=== PATIENT | female | born 2000 | race Caucasian/White ===

== ENCOUNTER 2021-10-20 19:52 | Emergency (ER) | payer MEDICAID, OTHER ==
--- NOTE | 2021-10-20 19:56 | ERPHSYRPT ---
- History of Present Illness Time Seen by Provider: 10/20/21 19:56 Source: patient Physician History: This is a 21-year-old white female patient of Dr. Rosas who is approximate 12- 1/2 weeks based on an ultrasound that was performed on 09/18/2021 which shows a single viable intrauterine at approximately 8 weeks and 1 day. There is a tiny sliver of subchorionic hemorrhage at that time. Patient was engaged in sexual intercourse late last night and this morning there was a small amount of vaginal bleeding. This is the patient's first . She felt that this was abnormal and immediately came to the emergency department. She has no pain. There is been no cramping. She has no genitourinary symptoms other than the vaginal bleeding that has since stopped. Timing/Duration: today Activites at Onset: sexual activity Quality: other (No pain) Onset Location: other (No pain) Severity of Pain-Max: none Severity of Pain-Current: none Prior abdominal problems: none Modifying Factors: Improves With: nothing Associated Symptoms: vaginal discharge (Bleeding. Stopped prior to arrival to the emergency department), No abdominal pain, No diaphoresis, No vomiting, No dysuria, No polyuria, No lower back pain Allergies/Adverse Reactions: No Known Drug Allergies Allergy (Verified 10/20/21 20:00) Home Medications: Vit No.130/Iron/Folic [ Vitamins] 1 each PO 10/20/21 [History] Hx Tetanus, Diphtheria Vaccination/Date Given: Yes Hx Influenza Vaccination/Date Given: No Hx Pneumococcal Vaccination/Date Given: No Travel Risk - International Travel Have you traveled outside of the country in past 3 weeks: No - Coronavirus Screening Are you exhibiting any of the following symptoms?: No Close contact with a COVID-19 positive Pt in past 14-21 Days: No - Review of Systems Constitutional: No Symptoms Eyes: Photophobia Ears, Nose, & Throat: No Symptoms Respiratory: No Symptoms Cardiac: No Symptoms Abdominal/Gastrointestinal: No Symptoms Genitourinary Symptoms: Vaginal Bleeding (Stopped prior to arrival to the emergency department) Musculoskeletal: No Symptoms Skin: No Symptoms Neurological: No Symptoms Psychological: No Symptoms Endocrine: No Symptoms Hematologic/Lymphatic: No Symptoms Immunological/Allergic: No Symptoms All Other Systems: Reviewed and Negative - Past Medical History Pertinent Past Medical History: No Neurological History: No Pertinent History ENT History: No Pertinent History Cardiac History: No Pertinent History Respiratory History: No Pertinent History Endocrine Medical History: No Pertinent History Musculoskeletal History: No Pertinent History GI Medical History: No Pertinent History History: No Pertinent History Psycho-Social History: No Pertinent History Female Reproductive Disorders: No Pertinent History - Past Surgical History Past Surgical History: No - Social History Smoking Status: Never smoker Exposure to second hand smoke: No Drug Use: none Patient Lives Alone: No - Nursing Vital Signs Nursing Vital Signs: Initial Vital Signs Temperature 98.4 F 10/20/21 20:01 Pulse Rate 105 H 10/20/21 20:01 Respiratory Rate 18 10/20/21 20:01 Blood Pressure 113/80 10/20/21 20:01 O2 Sat by Pulse Oximetry 98 10/20/21 20:01 Pain Scale Pain Intensity 0 - Physical Exam General Appearance: no apparent distress, alert, anxiety Eye Exam: PERRL/EOMI, eyes nml inspection Ears, Nose, Throat Exam: normal ENT inspection, moist mucous membranes Neck Exam: normal inspection, non-tender, supple, full range of motion Respiratory Exam: normal breath sounds, lungs clear, airway intact, No chest tenderness, No respiratory distress Cardiovascular Exam: regular rate/rhythm, normal heart sounds, normal peripheral pulses Gastrointestinal/Abdomen Exam: soft, normal bowel sounds, No tenderness Pelvic Exam: not done Rectal Exam: not done Back Exam: normal inspection, normal range of motion, No CVA tenderness, No vertebral tenderness Extremity Exam: normal inspection, normal range of motion, pelvis stable Neurologic Exam: alert, oriented x 3, cooperative, tool pusher II-XII nml as tested, normal mood/affect, nml cerebellar function, nml station & gait, sensation nml Skin Exam: normal color, warm, dry Lymphatic Exam: No adenopathy SpO2 Interpretation: normal O2 Delivery: Room Air - Course Nursing assessment & vital signs reviewed: Yes Ordered Tests: Active Orders 24 hr Category Date Time Status CBC W DIFF Stat Lab 10/20/21 20:23 Completed CMP Stat Lab 10/20/21 20:23 Completed CULTURE,URINE Stat Lab 10/20/21 20:23 Received HCG, Quantitative (Inhouse) Stat Lab 10/20/21 20:23 Received Medication Summary Discontinued Medications Generic Name Dose Route Start Last Admin Trade Name Freq PRN Reason Stop Dose Admin Cephalexin HCl 500 mg 10/20/21 21:17 10/20/21 21:22 Cephalexin Mh500 Mg Capsule PO 10/20/21 21:18 500 mg STAT ONE Administration Cephalexin HCl Confirm 10/20/21 21:21 Cephalexin Mh500 Mg Capsule Administered 10/20/21 21:22 Dose 500 mg .ROUTE .STK-MED ONE Lab/Rad Data: Laboratory Result Diagrams 10/20/21 20:23 10/20/21 20:23 Laboratory Results 10/20/21 10/20/21 10/20/21 Range/Units 20:23 20:23 20:23 WBC 3.7 L (4.0-10.5) K/mm3 RBC 4.07 L (4.1-5.4) M/mm3 Hgb 12.8 (12.0-16.0) gm/dl Hct 37.6 (35-47) % MCV 92.4 (78-100) fl MCH 31.4 (26-32) pg MCHC 34.0 (32-36) g/dl RDW 13.2 (11.5-14.0) % Plt Count 259 (150-450) K/mm3 MPV 9.0 (7.5-11.0) fl Gran % 52.0 (36.0-66.0) % Eos # (Auto) 0.02 (0-0.5) Absolute Lymphs (auto) 1.28 (1.0-4.6) Absolute Monos (auto) 0.44 (0.0-1.3) Lymphocytes % 35.1 (24.0-44.0) % Monocytes % 12.1 H (0.0-12.0) % Eosinophils % 0.5 (0.00-5.0) % Basophils % 0.3 (0.0-0.4) % Absolute Granulocytes 1.90 (1.4-6.9) Basophils # 0.01 (0-0.4) Sodium 135 L (137-145) mmol/L Potassium 3.6 (3.5-5.1) mmol/L Chloride 107 (98-107) mmol/L Carbon Dioxide 19 L (22-30) mmol/L Anion Gap 12.6 (5-15) MEQ/L BUN 9 (7-17) mg/dL Creatinine 0.72 (0.52-1.04) mg/dL Estimated GFR > 60.0 ML/MIN Glucose 88 (74-106) mg/dL Calcium 9.3 (8.4-10.2) mg/dL Total Bilirubin 0.30 (0.2-1.3) mg/dL AST 23 (14-36) U/L ALT 15 (0-35) U/L Alkaline Phosphatase 46 (38-126) U/L Serum Total Protein 6.8 (6.3-8.2) g/dL Albumin 3.8 (3.5-5.0) g/dL Urinalys Dipstick Clnc MAIN LAB Urine Color YELLOW (YELLOW) Urine Appearance CLEAR (CLEAR) Urine pH 6.5 (5-6) Ur Specific [place] 1.025 (1.005-1.025) POC Urine Protein Conf NEGATIVE (Negative) Urine Ketones NEGATIVE (NEGATIVE) Urine Nitrite NEGATIVE (NEGATIVE) Urine Bilirubin NEGATIVE (NEGATIVE) Urine Urobilinogen 0.2 (0-1) mg/dL Urine Leukocytes TRACE (NEGATIVE) Urine WBC (Auto) 11-15 (0-5) /HPF Urine RBC (Auto) 26-50 (0-2) /HPF U Epithel Cells (Auto) RARE (FEW) /HPF Urine Bacteria (Auto) RARE (NEGATIVE) /HPF Urine RBC MODERATE (0-5) Shaggy/ul Urine Mucus (Auto) SLIGHT (NEGATIVE) /HPF Ur Culture Indicated? YES Urine Glucose NEGATIVE (NEGATIVE) mg/dL - Progress Progress: re-examined Progress Note: 10/20/21 20:42 heart tones at 176 bpm Blood Culture(s) Obtained: No Antibiotics given: No Counseled pt/family regarding: lab results, diagnosis, need for follow-up - Departure Departure Disposition: Home Clinical Impression: Vaginal bleeding in patient after first trimester, UTI in Condition: Stable Critical Care Time: No Referrals: GEE ROSAS MD [Primary Care Provider] - Follow up/PCP as directed Instructions: Urinary Tract Infections in , Bleeding In Early Additional Instructions: Drink plenty of fluids. Rest. Avoid sexual intercourse for 1 week. Keep your appointment with Dr. Rosas that is scheduled in approximately 1 week. Prescriptions: Cephalexin Mh 500 mg [Keflex 500 mg] 500 mg PO TID #15 cap
[2021-10-20 20:26] LABS: Basophil (Absolute #) 0.01 (0-0.4); Eosinophil % 0.5 % (0.00-5.0); Eosinophil (Absolute #) 0.02 (0-0.5); Hematocrit 37.6 % (35-47); Hemoglobin 12.8 gm/dl (12.0-16.0); Lymphocyte (Absolute #) 1.28 (1.0-4.6); Lymphocytes % 35.1 % (24.0-44.0); Mean Cell Volume 92.4 fl (78-100); Mean Corpuscular Hemoglobin 31.4 pg (26-32); Monocyte (Absolute #) 0.44 (0.0-1.3); Monocytes % 12.1 % (0.0-12.0); Platelet Count 259 K/mm3 (150-450); Red Blood Count 4.07 M/mm3 (4.1-5.4); Red Cell Distribution Width 13.2 % (11.5-14.0); White Blood Count 3.7 K/mm3 (4.0-10.5)
[2021-10-20 20:37] LABS: Bacteria RARE /HPF (NEGATIVE); Epithelial Cells RARE /HPF (FEW); Mucus SLIGHT /HPF (NEGATIVE); RBC 26-50 /HPF (0-2)
[2021-10-20 20:38] LABS: Appearance CLEAR (CLEAR); Bilirubin NEGATIVE (NEGATIVE); Dipstick done @ ? MAIN LAB; Glucose NEGATIVE (NEGATIVE); Ketones NEGATIVE (NEGATIVE); Nitrite NEGATIVE (NEGATIVE); Ph 6.5 (5-6); Protein,Urine Dip NEGATIVE (Negative); RBC MODERATE Ery/ul (0-5); Specific Gravity 1.025 (1.005-1.025); Urobilinogen 0.2 mg/dL (0-1)
[2021-10-20 20:40] LABS: ALBUMIN 3.8 g/dL (3.5-5.0); ALKALINE PHOSPHATASE 46 U/L (38-126); ANION GAP 12.6 MEQ/L (5-15); BLOOD UREA NITROGEN 9 mg/dL (7-17); CHLORIDE 107 mmol/L (98-107); Calcium 9.3 mg/dL (8.4-10.2); Carbon Dioxide 19 mmol/L (22-30); Creatinine 1 0.72 mg/dL (0.52-1.04); EST GLOMERULAR FILTRATION RATE > 60.0 ML/MIN; Glucose 88 mg/dL (74-106); Potassium 3.6 mmol/L (3.5-5.1); SGOT/AST 23 U/L (14-36); SGPT/ALT 15 U/L (0-35); SODIUM 135 mmol/L (137-145); Total Protein 6.8 g/dL (6.3-8.2)
[2021-10-20] MEDS ORDERED: KEFLEX 500 MG PO ONE (21:17)
[2021-10-20] MEDS ORDERED: KEFLEX 500 MG ONE (21:21)
[2021-10-20 21:44] VITALS: BP 105/66; PULSE 89; O2SAT 99
== END 2021-10-20 21:46 | disposition home or self-care (01) ==
LOC: ED 19:52
DX: O23.41 Unspecified infection of urinary tract in pregnancy, first trimester (principal); N39.0 Urinary tract infection, site not specified; Z3A.12 12 weeks gestation of pregnancy; O20.9 Hemorrhage in early pregnancy, unspecified
CPT/HCPCS: 36415; 80053; 81015; 84702; 85025; 87086; 99283; A9270-GY

== ENCOUNTER 2022-01-30 00:23 | Observation (INO) | payer OTHER ==
[2022-01-30 00:57] VITALS: BP 115/69; PULSE 85; O2SAT 97
[2022-01-30 01:47] LABS: Appearance SLIGHTLY CLOUDY (CLEAR); Bilirubin NEGATIVE (NEGATIVE); Dipstick done @ ? MAIN LAB; Glucose NEGATIVE (NEGATIVE); Ketones NEGATIVE (NEGATIVE); Nitrite NEGATIVE (NEGATIVE); Protein,Urine Dip NEGATIVE (Negative); RBC NEGATIVE Ery/ul (0-5); Specific Gravity 1.015 (1.005-1.025); Urobilinogen 0.2 mg/dL (0-1)
[2022-01-30 02:02] LABS: Bacteria PACKED /HPF (NEGATIVE); Epithelial Cells FEW /HPF (FEW); Mucus SLIGHT /HPF (NEGATIVE)
[2022-01-30 02:03] LABS: Amphetamine,Urine NEGATIVE (NEGATIVE); Barbiturate,Urine NEGATIVE (NEGATIVE); Benzodiazepine,Urine NEGATIVE (NEGATIVE); Cocaine,Urine NEGATIVE (NEGATIVE); Methadone,Urine NEGATIVE (NEGATIVE); Opiate,Urine NEGATIVE (NEGATIVE); PCP,Urine NEGATIVE (NEGATIVE); THC,Urine NEGATIVE (NEGATIVE); Urine Cultured Indicated? YES
== END 2022-01-30 02:50 | disposition home or self-care (01) ==
LOC: ICU 00:23
PROVIDERS: ADMIT Family Medicine; ATTEND Family Medicine
DX: Z34.02 Encounter for supervision of normal first pregnancy, second trimester (principal); Z3A.27 27 weeks gestation of pregnancy
CPT/HCPCS: 80307; 81015; 87086; G0378

== ENCOUNTER 2022-05-04 01:00 | Inpatient (IN) | payer OTHER ==
[2022-05-04] MEDS ORDERED: BRETHINE 1 MG/ML SQ PRN (17:00)
[2022-05-04] MEDS ORDERED: Cervidil 10 MG VAG SCH (18:00)
[2022-05-04] MEDS ORDERED: Zofran 4 MG/2 ML VIAL IV PRN (20:12)
[2022-05-04 20:27] LABS: Absolute Neutrophil Ct (ANC) 6.16 x10^3/uL (1.4-6.9); Basophil (Absolute #) 0.02 x10^3/uL (0-0.4); Eosinophil % 0.2 % (0.00-5.0); Eosinophil (Absolute #) 0.02 x10^3/uL (0-0.5); Hemoglobin 11.5 g/dL (12.0-16.0); Lymphocyte (Absolute #) 1.66 x10^3/uL (1.0-4.6); Lymphocytes % 19.6 % (24.0-44.0); Mean Cell Volume 93.8 fL (78-100); Mean Corpuscular Hemoglobin 30.8 pg (26-32); Mean Corpuscular Hgb Concent. 32.9 g/dL (32-36); Monocytes % 7.1 % (0.0-12.0); Neutrophil % 72.7 % (36.0-66.0); Platelet Count 222 x10^3/uL (150-450); Red Blood Count 3.73 x10^6/uL (4.1-5.4); Red Cell Distribution Width 13.8 % (11.5-14.0); White Blood Count 8.5 x10^3/uL (4.0-10.5)
[2022-05-04 20:44] LABS: Amphetamine,Urine NEGATIVE (NEGATIVE); Barbiturate,Urine NEGATIVE (NEGATIVE); Benzodiazepine,Urine NEGATIVE (NEGATIVE); Cocaine,Urine NEGATIVE (NEGATIVE); Methadone,Urine NEGATIVE (NEGATIVE); Opiate,Urine NEGATIVE (NEGATIVE); PCP,Urine NEGATIVE (NEGATIVE); THC,Urine NEGATIVE (NEGATIVE)
[2022-05-04] MEDS: TYLENOL EXTRA STRENGTH 500 MG PO PRN ×2 (23:21→23:58)
[2022-05-04] MEDS ORDERED: STADOL 2 MG IV ONE (23:37)
[2022-05-04] MEDS: Lactated Ringers 1,000 ML IV SCH (23:42)
[2022-05-05] MEDS: Lactated Ringers 1,000 ML IV SCH (03:40)
[2022-05-05] MEDS ORDERED: PITOCIN 30 UNITS/ LR 500 ML 30 UNITS/500 ML PLAST..BAG IV SCH ×2 (06:00→20:30)
[2022-05-05] MEDS ORDERED: Dermoplast Spray TP PRN (08:23)
[2022-05-05] MEDS ORDERED: LANSINOH 40 GM TOP PRN (08:23)
[2022-05-05] MEDS ORDERED: Dulcolax 10 MG SUPP PR PRN (08:23)
[2022-05-05] MEDS ORDERED: FENTANYL 2 MCG-BUPIV 0.125%-NS 250 ML Epidur 250 ML EPIDURAL SCH (09:00)
[2022-05-05] MEDS ORDERED: Ephedrine Sulfate 50 MG/ML IV PRN (09:00)
[2022-05-05] MEDS ORDERED: Lactated Ringers 1,000 ML IV ONE (09:00)
[2022-05-05] MEDS: Docusate Sodium 100 MG PO SCH ×2 (09:47→22:23)
[2022-05-05] MEDS: MOTRIN 400 MG PO PRN ×3 (09:52→22:23)
[2022-05-05] MEDS: CYTOTEC PO SCH (09:56)
[2022-05-05] MEDS: TUCKS TP PRN (10:18)
[2022-05-05] MEDS: TYLENOL EXTRA STRENGTH 500 MG PO PRN (19:01)
[2022-05-06 04:53] LABS: Absolute Neutrophil Ct (ANC) 7.79 x10^3/uL (1.4-6.9); Basophil (Absolute #) 0.05 x10^3/uL (0-0.4); Eosinophil (Absolute #) 0.13 x10^3/uL (0-0.5); Hematocrit 32.4 % (35-47); Hemoglobin 10.4 g/dL (12.0-16.0); Lymphocyte (Absolute #) 3.57 x10^3/uL (1.0-4.6); Lymphocytes % 28.3 % (24.0-44.0); Mean Corpuscular Hemoglobin 31.1 pg (26-32); Mean Corpuscular Hgb Concent. 32.1 g/dL (32-36); Mean Platelet Volume 9.4 fL (7.5-11.0); Monocytes % 7.9 % (0.0-12.0); Neutrophil % 61.8 % (36.0-66.0); Platelet Count 200 x10^3/uL (150-450); Red Blood Count 3.34 x10^6/uL (4.1-5.4); Red Cell Distribution Width 14.2 % (11.5-14.0); White Blood Count 12.6 x10^3/uL (4.0-10.5)
[2022-05-06] MEDS: MOTRIN 400 MG PO PRN ×3 (07:11→21:29)
[2022-05-06 07:19] LABS: HBsAg Screen Negative (Negative)
[2022-05-06] MEDS: Docusate Sodium 100 MG PO SCH ×2 (09:51→22:00)
[2022-05-06] MEDS: FERREX 150 PO SCH (09:52)
[2022-05-06] MEDS ORDERED: Adacel Vial IM ONE (10:00)
[2022-05-06] MEDS: TYLENOL EXTRA STRENGTH 500 MG PO PRN (12:28)
[2022-05-07] MEDS: TYLENOL EXTRA STRENGTH 500 MG PO PRN (07:55)
--- NOTE | 2022-05-07 09:09 | PCM.DS ---
Discharge Summary Date of Admission: 05/05/22 01:00 Admitting Physician: GEE ROSAS Consults: Consults on Case 05/05/22 09:00 Notify Anesthesia Provider PRN 05/05/22 10:40 Navigation ONCE Primary Care Provider: GEE ROSAS Allergies Allergies No Known Drug Allergies Allergy (Verified 05/04/22 22:31) Hospital Summary - Hospital Course Hospital Course: patient had uncomplicated at 40+ wks EGA. no repair, mild lochia and tolerating po postop. she is successfully at this time. well bonded with her infant Raissa - Vitals & Intake/Output Vital Signs: Vital Signs Temperature 98.9 F 05/07/22 08:00 Pulse Rate 86 05/07/22 08:00 Respiratory Rate 18 05/07/22 08:00 Blood Pressure 110/62 05/07/22 08:00 O2 Sat by Pulse Oximetry 98 05/07/22 08:00 Intake & Output: Intake & Output 05/04/22 05/05/22 05/06/22 05/07/22 11:59 11:59 11:59 11:59 Intake Total 520 400 650 Output Total 175 Balance 345 400 650 Weight 180 kg 82.024 kg - Lab Result Diagrams: 05/06/22 04:48 - Procedures and Test Procedures and Tests throughout Hospitalization: Therapy Orders & Screens 05/05/22 05:15 Standby STAT Comment: Diagnosis: Induction of labor Discharge Exam General Appearance: no apparent distress Neurologic Exam: alert, oriented x 3 Respiratory Exam: normal breath sounds, lungs clear, No respiratory distress Cardiovascular Exam: regular rate/rhythm, normal heart sounds Gastrointestinal/Abdomen Exam: soft, other (fundus firm) Extremity Exam: normal inspection, normal range of motion Skin Exam: normal color, warm, dry Final Diagnosis/Problem List - Final Discharge Diagnosis/Problem (1) Vaginal delivery Current Visit: Yes Status: Acute Code(s): O80 - ENCOUNTER FOR FULL-TERM UNCOMPLICATED DELIVERY (2) () Current Visit: Yes Status: Acute Code(s): Z78.9 - OTHER SPECIFIED HEALTH STATUS - Discharge Disposition: Home, Self-Care Condition: Stable Prescriptions: Continue Vit No.130/Iron/Folic [ Tablet] 1 each PO DAILY Follow up with: GEE ROSAS MD [Primary Care Provider] - 6 weeks
[2022-05-07] MEDS: TUCKS TP PRN (10:01)
[2022-05-07] MEDS: FERREX 150 PO SCH (10:02)
[2022-05-07] MEDS: Docusate Sodium 100 MG PO SCH (10:02)
[2022-05-07 15:50] VITALS: BP 133/75; PULSE 88; O2SAT 99
== END 2022-05-07 16:15 | disposition home or self-care (01) | DRG 807 ==
LOC: OB 01:00 → OBSVTOIN 05-05 01:00
PROVIDERS: ADMIT Family Medicine; ATTEND Family Medicine
PROC: 10E0XZZ Delivery of Products of Conception, External Approach (ICD-10-PCS; principal; 2022-05-05)
DX: O69.81X0 Labor and delivery complicated by cord around neck, without compression, not applicable or unspecified (principal); Z37.0 Single live birth; Z3A.40 40 weeks gestation of pregnancy; Z20.828 Contact with and (suspected) exposure to other viral communicable diseases
CPT/HCPCS: 36415; 80307; 85025; 87340; 90471; 90715; 94799; G0378; J0595; J2590; A9270-GY

== ENCOUNTER 2023-06-08 23:38 | Emergency (ER) | payer OTHER ==
[2023-06-08 23:53] VITALS: TEMP 98.5
--- NOTE | 2023-06-08 23:58 | ERPHSYRPT ---
- History of Present Illness Time Seen by Provider: 06/08/23 23:46 Source: patient Exam Limitations: no limitations Physician History: Pt states she has had a non-productive cough for the past 7 days, fever up to 102.8 degrees for the past 2 days, vomiting 4x in the past 3 days without blood and earaches today. Last BM was today & wnl. Pt also states she has had chills & generalized aches for the past 2 days. Allergies/Adverse Reactions: No Known Drug Allergies Allergy (Verified 06/08/23 23:48) Hx Tetanus, Diphtheria Vaccination/Date Given: Yes Hx Influenza Vaccination/Date Given: No Hx Pneumococcal Vaccination/Date Given: No Travel Risk - Vaccine Status Have you recieved a Covid-19 vaccination: No - Review of Systems Constitutional: Fever, Chills Ears, Nose, & Throat: Ear Pain Respiratory: Cough Abdominal/Gastrointestinal: Vomiting Musculoskeletal: Arthralgias Neurological: Headache (Pt states she has migraines.) - Past Medical History Pertinent Past Medical History: No Neurological History: No Pertinent History ENT History: No Pertinent History Cardiac History: No Pertinent History Respiratory History: No Pertinent History Endocrine Medical History: No Pertinent History Musculoskeletal History: No Pertinent History GI Medical History: No Pertinent History History: No Pertinent History Psycho-Social History: No Pertinent History Female Reproductive Disorders: No Pertinent History - Past Surgical History Past Surgical History: No - Social History Smoking Status: Never smoker Exposure to second hand smoke: No Drug Use: none Patient Lives Alone: No - Nursing Vital Signs Nursing Vital Signs: Initial Vital Signs Pulse Rate 105 H 06/08/23 23:49 Respiratory Rate 18 06/08/23 23:49 Blood Pressure 130/81 06/08/23 23:49 O2 Sat by Pulse Oximetry 97 06/08/23 23:49 Pain Scale Pain Intensity 8 - Physical Exam General Appearance: alert Eye Exam: PERRL/EOMI ENT Exam: TMs normal, pharyngeal erythema (mild) Neck Exam: normal inspection Respiratory Exam: normal breath sounds Cardiovascular/Chest Exam: normal heart sounds Gastrointestinal/Abdominal Exam: soft, normal bowel sounds Extremity Exam: no pedal edema Neurologic Exam: alert, cooperative Skin Exam: warm, dry SpO2 Interpretation: normal SpO2: 97 O2 Delivery: Room Air - Radiology Exams Chest X-ray Interpretation: Interpreted by me, No Pneumonia Ordered Tests: Active Orders 24 hr Category Date Time Status CHEST 2 VIEWS (PA AND LAT) Stat Exams 06/08/23 23:53 Taken CULTURE,URINE Stat Lab 06/08/23 23:59 Received HCG QUALITATIVE, URINE Stat Lab 06/09/23 Completed MONO SCREEN Stat Lab 06/08/23 00:05 Completed UA W/RFX UR CULTURE Stat Lab 06/08/23 23:59 Completed Lab/Rad Data: Laboratory Results 06/09/23 06/08/23 06/08/23 Range/Units Unknown 23:59 00:05 Urine Color Yellow (Yellow) Urine Appearance Cloudy A (Clear) Urine pH 6.5 (4.6-8.0) Ur Specific [place] 1.015 (1.005-1.030) Urine Protein 30 (Negative) Urine Glucose (UA) Negative (Negative) mg/dL Urine Ketones 15 A (Negative) Urine Blood Moderate A (Negative) Urine Nitrite Positive A (Negative) Urine Bilirubin Negative (Negative) Urine Urobilinogen 1.0 A (0.2) mg/dL Ur Leukocyte Esterase Large A (Negative) U Hyaline Cast (Auto) NONE SEEN (0-2) /LPF Urine Microscopic RBC 6-10 A (0-5) /HPF Urine Microscopic WBC >100 A (0-5) /HPF Ur Epithelial Cells None Seen (None Seen) /HPF Urine Bacteria Rare A (None Seen) /HPF Urine Culture Reflexed YES (NO) Urine HCG, Qual NEGATIVE (NEGATIVE) Monoscreen (NEGATIVE) Influenza Type A Ag NEGATIVE (NEGATIVE) Influenza Type B Ag NEGATIVE (NEGATIVE) RSV (PCR) NEGATIVE (NEGATIVE) SARS-CoV-2 (PCR) NEGATIVE (NEGATIVE) Group A Strep Antibody (NEGATIVE) 06/08/23 06/08/23 Range/Units 00:05 00:05 Urine Color (Yellow) Urine Appearance (Clear) Urine pH (4.6-8.0) Ur Specific [place] (1.005-1.030) Urine Protein (Negative) Urine Glucose (UA) (Negative) mg/dL Urine Ketones (Negative) Urine Blood (Negative) Urine Nitrite (Negative) Urine Bilirubin (Negative) Urine Urobilinogen (0.2) mg/dL Ur Leukocyte Esterase (Negative) U Hyaline Cast (Auto) (0-2) /LPF Urine Microscopic RBC (0-5) /HPF Urine Microscopic WBC (0-5) /HPF Ur Epithelial Cells (None Seen) /HPF Urine Bacteria (None Seen) /HPF Urine Culture Reflexed (NO) Urine HCG, Qual (NEGATIVE) Monoscreen NEGATIVE (NEGATIVE) Influenza Type A Ag (NEGATIVE) Influenza Type B Ag (NEGATIVE) RSV (PCR) (NEGATIVE) SARS-CoV-2 (PCR) (NEGATIVE) Group A Strep Antibody NOT DETECTED (NEGATIVE) - Progress Progress: unchanged Counseled pt/family regarding: lab results, diagnosis, rad results Medical Desision Making - Diagnostic Testing Diagnostic test were ordered, analyzed, and reviewed by me: Yes - Departure Departure Disposition: Home Clinical Impression: UTI (urinary tract infection) Condition: Stable Critical Care Time: No Referrals: GEE ROSAS MD [Primary Care Provider] - Follow up/PCP as directed Instructions: Urinary Tract Infection, Adult (DC), Fever, Adult (DC) Additional Instructions: Follow up with private doctor tomorrow. Prescriptions: Nitrofurantoin Macro 100 mg [Macrobid 100MG Capsule] 100 mg PO BID #14 cap
[2023-06-09 00:16] LABS: Appearance Cloudy (Clear); Bacteria Rare /HPF (None Seen); Bilirubin Negative (Negative); Blood Moderate (Negative); Epithelial Cells None Seen /HPF (None Seen); Glucose, Urine Negative (Negative); Hyaline Casts NONE SEEN /LPF (0-2); Ketones 15 (Negative); Leukocyte Esterase Large (Negative); Nitrite Positive (Negative); Ph 6.5 (4.6-8.0); Protein,Urine Dip 30 (Negative); Specific Gravity 1.015 (1.005-1.030); WBC >100 /HPF (0-5)
[2023-06-09 00:17] LABS: ADD URINE CULTURE? YES (NO)
[2023-06-09 00:25] LABS: HCG URINE TEST NEGATIVE (NEGATIVE)
[2023-06-09 00:54] LABS: INFLUENZA A NEGATIVE (NEGATIVE); INFLUENZA B NEGATIVE (NEGATIVE); RESPIRATORY SYNCTIAL VIRUS NEGATIVE (NEGATIVE); SARS-CoV-2 Xpert Express NEGATIVE (NEGATIVE)
[2023-06-09 01:05] VITALS: BP 120/80; PULSE 117; RESP 18
[2023-06-09] MEDS ORDERED: Rocephin 1000 MG INJ IM ONE (01:06)
[2023-06-09 01:08] VITALS: O2SAT 97
[2023-06-09] MEDS ORDERED: Rocephin 1000 MG INJ ONE (01:12)
[2023-06-09] MEDS ORDERED: XYLOCAINE 1% HCL 20 ML MDV ONE (01:12)
--- NOTE | 2023-06-09 08:58 | XRAY ---
Indication: Fever. Comparison: None PA/lateral chest demonstrates normal heart, lungs, and bony thorax.
== END 2023-06-09 01:26 | disposition home or self-care (01) ==
LOC: ED 23:38
DX: N39.0 Urinary tract infection, site not specified (principal); R05.1 Acute cough; R50.9 Fever, unspecified; R11.10 Vomiting, unspecified; M79.10 Myalgia, unspecified site; Z28.310 Unvaccinated for COVID-19
CPT/HCPCS: 0241U; 36415; 71046; 81001; 81025; 86308; 87086; 87651; 96372; 99283; 87077; 87186; J0696